=== PATIENT | female | born 1945 | race Caucasian/White ===

== ENCOUNTER 2022-04-03 06:14 | Day surgery (SDC) | payer MEDICARE ==
[2022-04-02 11:13] VITALS: BMI 24.7
[~2022-04-03 06:14] MED LIST: EPINEPHrine 0.3 MG in Ophthalmic Irrigation Solution 500 ML IRR SCH
[2022-04-03] MEDS ORDERED: Cyclopentolate 1% Opth Drop 2 ML BOT ONE (06:30)
[2022-04-03] MEDS ORDERED: Phenylephrine 2.5% Ophth Soln 5 ML BOT ONE (06:30)
[2022-04-03] MEDS ORDERED: Fentanyl 100 MCG/2 ML VIAL ONE (07:42)
[2022-04-03] MEDS ORDERED: Midazolam HCl 2 mg/2 ml Vial ONE (07:42)
[2022-04-03] MEDS ORDERED: Triamcinolone 40 MG/ML VIAL ONE (07:49)
[2022-04-03] MEDS ORDERED: Maxitrol 0.1% Opth Oint 3.5 GM TUBE ONE (07:49)
[2022-04-03] MEDS ORDERED: Lidocaine 4% PF 5 ML AMP ONE (07:49)
[2022-04-03] MEDS ORDERED: Bupivacaine 0.75% 10 ML VIAL ONE (07:49)
[2022-04-03] MEDS ORDERED: Lidocaine 1% MPF 2 ML VIAL ONE (07:49)
[2022-04-03] MEDS ORDERED: PROPOFOL 200 MG/20 ML VIAL ONE (07:49)
[2022-04-03] MEDS ORDERED: CEFAZOLIN 1 GM VIAL ONE (07:49)
== END 2022-04-03 08:50 | disposition home or self-care (01) ==
LOC: SDC 06:14
PROVIDERS: ATTEND Ophthalmology Retina Specialist
PROC: 08T43ZZ Resection of Right Vitreous, Percutaneous Approach (ICD-10-PCS; principal; 2022-04-03)
PROC: 08NE3ZZ Release Right Retina, Percutaneous Approach (ICD-10-PCS; 2022-04-03)
DX: H43.311 Vitreous membranes and strands, right eye (principal); E78.5 Hyperlipidemia, unspecified; F17.210 Nicotine dependence, cigarettes, uncomplicated; Z79.82 Long term (current) use of aspirin; Z79.899 Other long term (current) drug therapy
CPT/HCPCS: J0171; J0690; J2250; J2704; J3010; J3301; J3490

== ENCOUNTER 2022-06-12 06:00 | Day surgery (SDC) | payer MEDICARE ==
[2022-06-11 10:32] VITALS: BMI 25.2
[~2022-06-12 06:00] MED LIST changes: -EPINEPHrine 0.3 MG in Ophthalmic Irrigation Solution 500 ML IRR SCH; +Fluorouracil 100 MG, Enoxaparin Sodium 25 MG, EPINEPHrine 0.3 MG in Ophthalmic Irrigati... IRR SCH
[2022-06-12] MEDS ORDERED: Phenylephrine 2.5% Ophth Soln 5 ML BOT ONE (06:14)
[2022-06-12] MEDS ORDERED: Cyclopentolate 1% Opth Drop 2 ML BOT ONE (06:14)
[2022-06-12] MEDS ORDERED: fentaNYL PF 100 MCG/2 ML SYRINGE ONE (06:32)
[2022-06-12] MEDS ORDERED: Midazolam HCl 2 mg/2 ml Vial ONE (06:33)
[2022-06-12] MEDS ORDERED: CEFAZOLIN 1 GM VIAL ONE (07:02)
[2022-06-12] MEDS ORDERED: Lidocaine 4% PF 5 ML AMP ONE (07:02)
[2022-06-12] MEDS ORDERED: Lidocaine 1% PF 5 ML VIAL ONE (07:02)
[2022-06-12] MEDS ORDERED: Maxitrol 0.1% Opth Oint 3.5 GM TUBE ONE (07:02)
[2022-06-12] MEDS ORDERED: PROPOFOL 200 MG/20 ML VIAL ONE (07:02)
[2022-06-12] MEDS ORDERED: Bupivacaine 0.75% 10 ML VIAL ONE (07:02)
[2022-06-12] MEDS ORDERED: Indocyanine Green 25 MG/10 ML VIAL ONE (07:02)
[2022-06-12] MEDS ORDERED: Enoxaparin Sodium 30 MG/0.3 ML SYRINGE ONE (07:02)
[2022-06-12] MEDS ORDERED: Triamcinolone 40 MG/ML VIAL ONE (07:02)
[2022-06-12] MEDS ORDERED: Cyclopentolate 1% Opth Drop 2 ML BOT FS SCH (09:00)
[2022-06-12] MEDS ORDERED: Phenylephrine 2.5% Ophth Soln 5 ML BOT FS SCH (09:00)
== END 2022-06-12 08:08 | disposition home or self-care (01) ==
LOC: SDC 06:00
PROVIDERS: ATTEND Ophthalmology Retina Specialist
PROC: 08T53ZZ Resection of Left Vitreous, Percutaneous Approach (ICD-10-PCS; principal; 2022-06-12)
PROC: 08NF3ZZ Release Left Retina, Percutaneous Approach (ICD-10-PCS; 2022-06-12)
DX: H35.372 Puckering of macula, left eye (principal); Z79.82 Long term (current) use of aspirin; Z79.899 Other long term (current) drug therapy
CPT/HCPCS: J0690; J1650; J2250; J2704; J3301; J3490